=== PATIENT | female | born 1955 | race African-American/Black ===

== ENCOUNTER 2016-09-29 20:38 | Emergency (ER) | payer OTHER ==
[~2016-09-29] VITALS: Ht 157.5 cm; Wt 76.7 kg
[~2016-09-29 20:38] MED LIST: ALBU8.5H6 IH; AZIT250T PO; CODE30SO2 PO; LEVO100T PO; METO25TA2 PO; TRIA1CAP3 PO
[2016-09-29 21:32] LABS: BASO # 0.1 x10^3/uL (0.0-0.2); BASO % 1 % (0-3); EOS # 0.3 x10^3/uL (0.0-0.7); EOS % 6 % (0-3); HEMATOCRIT 37.4 % (36.0-47.0); HEMOGLOBIN 12.9 g/dL (12.0-15.5); LYMPH % 51 % (24-48); MEAN CORPUSCULAR HEMOGLOBIN 28 pg (25-35); MEAN CORPUSCULAR HGB CONC 35 g/dL (31-37); MEAN CORPUSCULAR VOLUME 82 fL (79-100); MONO # 0.4 x10^3/uL (0.0-1.1); MONO % 7 % (0-9); NEUT # 2.1 x10^3uL (1.8-7.7); NEUT % 36 % (31-73); PLATELET COUNT 198 x10^3/uL (140-400); RED BLOOD COUNT 4.54 x10^6/uL (3.50-5.40); RED CELL DISTRIBUTION WIDTH 15.1 % (11.5-14.5); WHITE BLOOD COUNT 5.9 x10^3/uL (4.0-11.0)
[2016-09-29 21:48] LABS: ALBUMIN 3.8 g/dL (3.4-5.0); ALBUMIN/GLOBULIN RATIO 1.1 (1.0-1.7); CALCIUM 9.2 mg/dL (8.5-10.1); GFR 68.7; POTASSIUM 3.6 mmol/L (3.5-5.1); TOTAL BILIRUBIN 0.3 mg/dL (0.2-1.0); TOTAL PROTEIN 7.4 g/dL (6.4-8.2)
--- NOTE | 2016-09-29 22:22 | PHYS DOC ---
Past History Past Medical History: Asthma, Hypertension, Hyperthyroid Past Surgical History: Other Smoking: Non-smoker Alcohol Use: None Drug Use: None Adult General Chief Complaint Chief Complaint: CHEST PAIN HPI HPI Patient is a 60-year-old female who presents today to the ER complaining of left -sided sharp chest pain that started around 4 PM today. Patient reports that he' s been intermittent and lasts for a couple seconds and is resolved. Patient reports that the discomfort was associated with some shortness of breath. Patient reports that she feels that she has multiple PVCs which she has a history of. Patient has any fevers shakes chills nausea vomiting diarrhea cough cold runny nose. Patient denies any pain radiating to her arms. Patient denies any weakness to her upper or lower 70s. Patient has any change in the discomfort to exertion or rest meals. Patient reports it does hurt sometimes when she takes a deep breath in. Patient reports the pain is sharp in nature and again last for seconds when it comes on in the gets resolved. She has a history of hypertension. Patient does not have a history of coronary artery disease, diabetes, liver longer kidney problems. Patient does have a history of hypothyroid. Patient had her tonsils taken out as well as a in the past. Patient does not smoke drink or do drugs. Patient has no family history of present CAD in the past. Patient is allergic to any medications. Patient reports that she's had a history of PVCs and she currently has an appointment to see her roving teller the for another echocardiogram. Patient reports that she had an exercise stress test in 2014 which was normal. Her roving teller Dr. Singleton from . Patient reports she had an echocardiogram at that time was also normal. Patient is currently pain-free in the ER and has been pain-free throughout her evaluation here. Patient denies any orthopnea PND or dyspnea on exertion. Patient's physical exam was unremarkable. Patient heart exam was regular rate and rhythm with occasional ectopic beats. Patient's lungs are clear without any wheezing rales or rhonchi. Patient has no bipedal edema. Patient has no calf tenderness or Homans sign. Patient has no split S2 or if heave. Patient's ER workup revealed unremarkable EKG. Patient's EKG was normal sinus rhythm at a heart rate of 60 with multiple PVCs. Patient reports that this is normal for her. Patient's CBC CMP and troponin were all within normal limits. Patient had a slightly elevated BNP however her chest x-ray was normal with a normal heart size no infiltrates or effusions and no evidence of CHF. Assessment and plan this is a 60-year-old female who presents here today complaining of left-sided chest discomfort that was sharp in nature and appears to be atypical for cardiac etiology. I discussed with the patient the limitations of and ER evaluation and discussed with her that although I'm unable to rule out or rule in a cardiac source for her discomfort she would be considered to be low risk for coronary artery disease. I discussed with the patient that I would not be able to rule out a cardiac source of her pain and would recommend inpatient evaluation at this time in order to rule out completely. Patient reports that she does not feel that in admission is indicated at this time and would prefer to be discharged home. Utilizing shared decision making I did discuss the patient all the risks and benefits of being admitted versus going home. I did discuss with her the potential of arrhythmia microinfarction of the potential possibility if this was a cardiac source. Patient feels comfortable going home and feels that this is unlikely a cardiac etiology. Patient agrees to follow-up with her roving teller as soon as possible for further workup. Patient reports that she will return to the ER if the pain returns. Patient reports that she will return the ER. He changes her mind regarding addition to the hospital. Review of Systems Review of Systems Constitutional: Denies fever or chills [] Eyes: Denies change in visual acuity, redness, or eye pain [] All other review systems are negative except as documented in the history of present illness portion. Allergies Allergies Allergies Coded Allergies Type Severity Reaction Last Updated Verified No Known Drug Allergies 06/06/16 No Physical Exam Physical Exam Constitutional: Well developed, well nourished, no acute distress, non-toxic appearance. [] HENT: Normocephalic, atraumatic, bilateral external ears normal, oropharynx moist, no oral exudates, nose normal. [] Eyes: PERRLA, EOMI, conjunctiva normal, no discharge. [] Neck: Normal range of motion, no tenderness, supple, no stridor. [] Cardiovascular:Heart rate regular with Lungs & Thorax: Bilateral breath sounds clear to auscultation [] Abdomen: Bowel sounds normal, soft, no tenderness, no masses, no pulsatile masses. [] Skin: Warm, dry, no erythema, no rash. [] Back: No tenderness, no CVA tenderness. [] Extremities: No tenderness, no cyanosis, no clubbing, ROM intact, no edema. [] Neurologic: Alert and oriented X 3, normal motor function, normal sensory function, no focal deficits noted. [] Psychologic: Affect normal, judgement normal, mood normal. [] Current Patient Data Lab Results Test 09/29/16 21:17 White Blood Count 5.9 x10^3/uL Red Blood Count 4.54 x10^6/uL Hemoglobin 12.9 g/dL Hematocrit 37.4 % Mean Corpuscular Volume 82 fL Mean Corpuscular Hemoglobin 28 pg Mean Corpuscular Hemoglobin Concent 35 g/dL Red Cell Distribution Width 15.1 % Platelet Count 198 x10^3/uL Neutrophils (%) (Auto) 36 % Lymphocytes (%) (Auto) 51 % Monocytes (%) (Auto) 7 % Eosinophils (%) (Auto) 6 % Basophils (%) (Auto) 1 % Neutrophils # (Auto) 2.1 x10^3uL Lymphocytes # (Auto) 3.0 x10^3/uL Monocytes # (Auto) 0.4 x10^3/uL Eosinophils # (Auto) 0.3 x10^3/uL Basophils # (Auto) 0.1 x10^3/uL D-Dimer (Alma) 0.23 mg/L Sodium Level 144 mmol/L Potassium Level 3.6 mmol/L Chloride Level 108 mmol/L Carbon Dioxide Level 25 mmol/L Anion Gap 11 Blood Urea Nitrogen 18 mg/dL Creatinine 1.0 mg/dL Estimated GFR (Cockcroft-Gault) 68.7 BUN/Creatinine Ratio 18 Glucose Level 98 mg/dL Calcium Level 9.2 mg/dL Total Bilirubin 0.3 mg/dL Aspartate Amino Transf (AST/SGOT) 23 U/L Alanine Aminotransferase (ALT/SGPT) 31 U/L Alkaline Phosphatase 77 U/L Troponin I Quantitative < 0.017 ng/mL VK-Pgm-W-Type Natriuretic Peptide 371 pg/mL Total Protein 7.4 g/dL Albumin 3.8 g/dL Albumin/Globulin Ratio 1.1 Laboratory Tests Test 09/29/16 21:17 White Blood Count 5.9 x10^3/uL (4.0-11.0) Red Blood Count 4.54 x10^6/uL (3.50-5.40) Hemoglobin 12.9 g/dL (12.0-15.5) Hematocrit 37.4 % (36.0-47.0) Mean Corpuscular Volume 82 fL (79-100) Mean Corpuscular Hemoglobin 28 pg (25-35) Mean Corpuscular Hemoglobin Concent 35 g/dL (31-37) Red Cell Distribution Width 15.1 % (11.5-14.5) H Platelet Count 198 x10^3/uL (140-400) Neutrophils (%) (Auto) 36 % (31-73) Lymphocytes (%) (Auto) 51 % (24-48) H Monocytes (%) (Auto) 7 % (0-9) Eosinophils (%) (Auto) 6 % (0-3) H Basophils (%) (Auto) 1 % (0-3) Neutrophils # (Auto) 2.1 x10^3uL (1.8-7.7) Lymphocytes # (Auto) 3.0 x10^3/uL (1.0-4.8) Monocytes # (Auto) 0.4 x10^3/uL (0.0-1.1) Eosinophils # (Auto) 0.3 x10^3/uL (0.0-0.7) Basophils # (Auto) 0.1 x10^3/uL (0.0-0.2) D-Dimer (Alma) 0.23 mg/L (0.00-0.50) Sodium Level 144 mmol/L (136-145) Potassium Level 3.6 mmol/L (3.5-5.1) Chloride Level 108 mmol/L (98-107) H Carbon Dioxide Level 25 mmol/L (21-32) Anion Gap 11 (6-14) Blood Urea Nitrogen 18 mg/dL (7-20) Creatinine 1.0 mg/dL (0.6-1.0) Estimated GFR (Cockcroft-Gault) 68.7 BUN/Creatinine Ratio 18 (6-20) Glucose Level 98 mg/dL (70-99) Calcium Level 9.2 mg/dL (8.5-10.1) Total Bilirubin 0.3 mg/dL (0.2-1.0) Aspartate Amino Transferase (AST) 23 U/L (15-37) Alanine Aminotransferase (ALT) 31 U/L (14-59) Alkaline Phosphatase 77 U/L (46-116) Troponin I Quantitative < 0.017 ng/mL (0-0.055) LC-Fcp-H-Type Natriuretic Peptide 371 pg/mL (0-124) H Total Protein 7.4 g/dL (6.4-8.2) Albumin 3.8 g/dL (3.4-5.0) Albumin/Globulin Ratio 1.1 (1.0-1.7) EKG EKG [] Radiology/Procedures Radiology/Procedures [] Course & Med Decision Making Course & Med Decision Making Pertinent Labs and Imaging studies reviewed. (See chart for details) [] Dragon Disclaimer Dragon Disclaimer This chart was dictated in whole or in part using Voice Recognition software in a busy, high-work load, and often noisy Emergency Department environment. It may contain unintended and wholly unrecognized errors or omissions. Departure Departure: Impression: Primary Impression: Nonspecific chest pain Disposition: 01 HOME, SELF-CARE Condition: IMPROVED Referrals: SHARRI RIOS MD (PCP) Patient Instructions: Chest Pain (Nonspecific) Additional Instructions: Please follow up with your roving teller as soon as possible. Please call in the morning to make an appointment. Please return to the ER if you change your mind about feeling the need to be admitted to the hospital. Please return to the ER if you have any recurring chest pain, shortness of breath, or any other symptoms that are concerning to you. ALEN ROSS MD September 29, 2016 22:22
[2016-09-29 22:35] VITALS: BP 126/61
--- NOTE | 2016-09-29 23:19 | EKG ---
[address] [address] Test Date: 2016-09-29 Test Time: 20:51:20 Pat Name: KAIT VASQUEZ Department: Room: Gender: F [employer]: : 1955 Requested By: ALEN ROSS Order Number: [id number] Reading MD: Johan Atkins Measurements Intervals [place] Rate: 69 P: 34 [place]: 136 QRS: 15 QRSD: 78 T: 24 QT: 402 QTc: 432 Interpretive Statements SINUS RHYTHM COMPLEX(ES) WITH ABERRANT INTRAVENTRICULAR CONDUCTION VENTRICULAR PREMATURE COMPLEX(ES) Electronically Signed On 10-03-2016 9:33:12 CDT by Johan Atkins
--- NOTE | 2016-09-30 07:19 | RAD ---
Exam performed: One view chest. Indication: chest pain today Date of Service: 09/29/2016 11:01 PM Comparison: 07/23/13. Single AP upright portable view chest findings: Cardiomediastinal silhouette is within limits of normal. No acute infiltrates, effusion or pneumothorax is detected. The bony structures are normal. Impression: No acute cardiopulmonary process is detected.
== END 2016-09-29 22:40 | disposition home or self-care (01) ==
LOC: ER 20:38
DX: R07.89 Other chest pain (principal); R06.02 Shortness of breath; J45.909 Unspecified asthma, uncomplicated; I10 Essential (primary) hypertension; E03.9 Hypothyroidism, unspecified
CPT/HCPCS: 36415; 71010; 80053; 83880; 84484; 85027; 85379; 93005; 99285-25

== ENCOUNTER → 2017-03-02 | Outpatient (CLI) | payer OTHER ==
--- NOTE | 2017-03-03 11:19 | RAD ---
DATE: 03/02/2017 EXAM: DIGITAL SCREEN BILAT W/CAD HISTORY: Screening COMPARISON: 01/08/2016 This study was interpreted with the benefit of Computerized Aided Detection (CAD). FINDINGS: Breast Density: HETERO The breast parenchyma Is heterogeneiously dense, which could reduce sensitivity of mammography. Breast parenchyma level C. The history of breast reduction is noted There has not been a significant change in the appearance of the breasts compared to the previous IMPRESSION: Benign finding BI-RADS CATEGORY: 2 BENIGN FINDING(S) RECOMMENDED FOLLOW-UP: 12M 12 MONTH FOLLOW-UP PQRS compliance statement: Patient information was entered into a reminder system with a target due date 03/02/2018 for the next mammogram. Mammography is a sensitive method for finding small breast cancers, but it does not detect them all and is not a substitute for careful clinical examination. A negative mammogram does not negate a clinically suspicious finding and should not result in delay in biopsying a clinically suspicious abnormality. "Our facility is accredited by the [employer] Mammography Program."
== END | disposition home or self-care (01) ==
LOC: MAMMO 15:19
PROVIDERS: ATTEND Obstetrics & Gynecology
DX: Z12.31 Encounter for screening mammogram for malignant neoplasm of breast (principal)
CPT/HCPCS: G0202; 77067

== ENCOUNTER → 2017-11-17 | Outpatient (CLI) | payer OTHER ==
--- NOTE | 2017-11-17 13:41 | RAD ---
CT HEAD WITHOUT CONTRAST 11/17/2017 9:43 AM Indication: HEADACHE WITH BLURRED VISION TIMES 2 MONTHS Comparison: CT of the head without contrast December 24, 2010 Procedure: Multidetector CT imaging of the head was performed without the administration of contrast. Findings: There is no evidence of acute intracranial hemorrhage. There is no evidence of acute territorial infarction. Please note that CT is limited for evaluation of acute ischemia. No mass effect or midline shift is identified . The ventricles and basilar cisterns have an appropriate appearance. No abnormal extra-axial fluid collections are seen. No acute osseous changes are identified. Impression: No evidence of acute intracranial abnormality Electronically signed by: Rocky Beach MD (11/17/2017 1:38 PM) [id number]
== END | disposition home or self-care (01) ==
LOC: CT 09:32
PROVIDERS: ATTEND Family Medicine
DX: H53.8 Other visual disturbances (principal); G43.009 Migraine without aura, not intractable, without status migrainosus; I10 Essential (primary) hypertension; J45.909 Unspecified asthma, uncomplicated; E03.9 Hypothyroidism, unspecified
CPT/HCPCS: 70450

== ENCOUNTER → 2017-11-28 | Outpatient (CLI) | payer OTHER ==
--- NOTE | 2017-11-28 15:06 | RAD ---
Three-view left foot dated 11/28/2017. No comparison available. Clinical indication: Pain after twisting injury. FINDINGS: 3 views left foot show normal bony alignment. No displaced fracture. No acute osseous or articular abnormality. Small calcaneal spur. IMPRESSION: No acute radiographic abnormality. Electronically signed by: Jason Mosqueda MD (11/28/2017 3:03 PM) [id number]
== END | disposition home or self-care (01) ==
LOC: DXRAD 14:08
PROVIDERS: ATTEND Family Medicine
DX: M77.32 Calcaneal spur, left foot (principal); I10 Essential (primary) hypertension; J45.909 Unspecified asthma, uncomplicated; E03.9 Hypothyroidism, unspecified; G43.009 Migraine without aura, not intractable, without status migrainosus
CPT/HCPCS: 73630

== ENCOUNTER 2018-01-02 22:09 | Inpatient (IN) | payer OTHER ==
[~2018-01-02] VITALS: Ht 157.5 cm; Wt 74.5 kg
[~2018-01-02 22:09] MED LIST changes: -CEFU250T59 PO; -ESZO3TAB28 PO; -FLEC100T PO; -IOHEXOL 240 MG/ML 50ML VIAL. ONE; -IOHEXOL 240 MG/ML 50ML VIAL. PO ONE; -LEVO125T5 PO; -METO50TA29 PO; -METR500T PO; -ONDA4TAB12 PO
[2018-01-02 22:45] VITALS: BP 132/82
[2018-01-02] MEDS ORDERED: METO50TA29 PO (22:59)
[2018-01-02] MEDS ORDERED: FLEC100T PO (22:59)
[2018-01-02] MEDS ORDERED: ESZO3TAB28 PO (22:59)
[2018-01-02] MEDS ORDERED: LEVO125T5 PO (22:59)
[2018-01-02] MEDS ORDERED: ONDANSETRON ODT 4 MG TAB.RAPDIS PO PRN (23:00)
[2018-01-02] MEDS ORDERED: fentaNYL PF 250 MCG/5 ML VIAL IV PRN (23:00)
[2018-01-02] MEDS: IV 1/2 NORMAL SALINE 1,000 ML IV PRN (23:53)
[2018-01-03 06:36] VITALS: BP 119/70
[2018-01-03] MEDS: METOPROLOL SUCC 24HR ER 50 MG TAB.ER.24H. PO SCH (08:34)
[2018-01-03] MEDS: LEVOTHYROXINE 125 MCG TABLET PO SCH (08:34)
[2018-01-03] MEDS: FLECAINIDE 50 MG TABLET. PO SCH ×2 (08:35→21:19)
[2018-01-03] MEDS: ALBUTEROL SULFATE 8GM INHALER. IH SCH ×3 (08:36→21:00)
[2018-01-03 09:44] LABS: CALCIUM 8.6 mg/dL (8.5-10.1); GFR 68.2; POTASSIUM 3.5 mmol/L (3.5-5.1)
[2018-01-03 09:49] LABS: BASO % 0 % (0-3); EOS # 0.1 x10^3/uL (0.0-0.7); EOS % 3 % (0-3); HEMATOCRIT 40.8 % (36.0-47.0); HEMOGLOBIN 13.7 g/dL (12.0-15.5); LYMPH # 1.7 x10^3/uL (1.0-4.8); LYMPH % 34 % (24-48); MEAN CORPUSCULAR HEMOGLOBIN 29 pg (25-35); MEAN CORPUSCULAR HGB CONC 34 g/dL (31-37); MEAN CORPUSCULAR VOLUME 86 fL (79-100); MONO # 0.3 x10^3/uL (0.0-1.1); MONO % 5 % (0-9); NEUT # 2.9 x10^3uL (1.8-7.7); NEUT % 58 % (31-73); PLATELET COUNT 248 x10^3/uL (140-400); RED BLOOD COUNT 4.75 x10^6/uL (3.50-5.40); RED CELL DISTRIBUTION WIDTH 15.5 % (11.5-14.5); WHITE BLOOD COUNT 5.1 x10^3/uL (4.0-11.0)
[2018-01-03 11:22] VITALS: BP 116/72
[2018-01-03] MEDS: IV 1/2 NORMAL SALINE 1,000 ML IV PRN ×2 (13:00→21:38)
[2018-01-03 14:44] VITALS: BP 126/76
[2018-01-03 19:00] VITALS: BP 107/68
[2018-01-03] MEDS ORDERED: ZOLPIDEM 5 MG TABLET. PO SCH (21:00)
[2018-01-03 22:09] VITALS: BP 123/74
[2018-01-04 05:54] VITALS: BP 117/71
[2018-01-04] MEDS: LEVOTHYROXINE 125 MCG TABLET PO SCH (06:07)
[2018-01-04 08:31] VITALS: BP 117/71
[2018-01-04] MEDS: FLECAINIDE 50 MG TABLET. PO SCH (08:31)
[2018-01-04] MEDS: METOPROLOL SUCC 24HR ER 50 MG TAB.ER.24H. PO SCH (08:31)
[2018-01-04] MEDS: ALBUTEROL SULFATE 2.5 MG/3 ML NEBU. NEB SCH ×2 (09:00→09:48)
[2018-01-04] MEDS ORDERED: CEFU250T59 PO (10:00)
[2018-01-04] MEDS ORDERED: ONDA4TAB12 PO (10:00)
[2018-01-04] MEDS ORDERED: METR500T PO (10:01)
--- NOTE | 2018-01-11 13:30 | DS ---
DATE OF DISCHARGE: 01/04/2018 HOSPITAL COURSE: A 62-year-old female came in and she has been suffering for about a week and tried to hang in, continuing her abdominal pain at home. She came in, she was noted to have on imaging an infectious colitis. She has done that the day before admission. The patient noted a long segment of the distal ileum and terminal ileum that was thickened and some aneurysm consistent with inflammatory bowel disease. The patient was checked for infectious etiologies and there was none noted. Otherwise, the patient made good progress during the rest of her hospitalization. She did have IV antibiotic therapy, which seemed to help her colitis and she made significant progress to be able to be discharged home. Follow up as an outpatient and make further evaluation as an outpatient with her GI doctor. IMPRESSION: Colitis of the terminal ileum, abdominal pain. The patient will be discharged home. See EMRAD. Decreased activity. Low fiber diet for 2 weeks and then high fiber. We will have her follow up with the GI specialist. SHARRI RIOS MD DR: KARSTEN/donny JOB#: [id number] / [id number]
== END 2018-01-04 14:30 | disposition home or self-care (01) | DRG 392 ==
LOC: 1 SOUTH 22:44
PROVIDERS: ADMIT Family Medicine; ATTEND Family Medicine
DX: A09 Infectious gastroenteritis and colitis, unspecified (principal); E03.9 Hypothyroidism, unspecified; M47.9 Spondylosis, unspecified; I10 Essential (primary) hypertension; Z82.3 Family history of stroke; Z82.49 Family history of ischemic heart disease and other diseases of the circulatory system; Z79.899 Other long term (current) drug therapy; Z88.8 Allergy status to other drugs, medicaments and biological substances
CPT/HCPCS: 36415; 80048; 85025; 87045; J1956; J3010; J3490; J7030

== ENCOUNTER → 2018-01-02 | Outpatient (CLI) | payer OTHER ==
[~2018-01-02] MED LIST changes: +CEFU250T59 PO; +ESZO3TAB28 PO; +FLEC100T PO; +IOHEXOL 240 MG/ML 50ML VIAL. ONE; +IOHEXOL 240 MG/ML 50ML VIAL. PO ONE; +LEVO125T5 PO; +METO50TA29 PO; +METR500T PO; +ONDA4TAB12 PO
[2018-01-02 17:41] LABS: BASO % 1 % (0-3); EOS # 0.1 x10^3/uL (0.0-0.7); EOS % 2 % (0-3); HEMATOCRIT 44.1 % (36.0-47.0); HEMOGLOBIN 14.9 g/dL (12.0-15.5); LYMPH % 33 % (24-48); MEAN CORPUSCULAR HEMOGLOBIN 29 pg (25-35); MEAN CORPUSCULAR HGB CONC 34 g/dL (31-37); MEAN CORPUSCULAR VOLUME 85 fL (79-100); MONO # 0.4 x10^3/uL (0.0-1.1); MONO % 6 % (0-9); NEUT # 3.5 x10^3uL (1.8-7.7); NEUT % 58 % (31-73); PLATELET COUNT 283 x10^3/uL (140-400); RED BLOOD COUNT 5.18 x10^6/uL (3.50-5.40); RED CELL DISTRIBUTION WIDTH 15.4 % (11.5-14.5)
[2018-01-02 17:59] LABS: ALBUMIN 4.6 g/dL (3.4-5.0); CALCIUM 9.9 mg/dL (8.5-10.1); CREATININE 0.9 mg/dL (0.6-1.0); TOTAL BILIRUBIN 0.6 mg/dL (0.2-1.0)
--- NOTE | 2018-01-02 20:45 | RAD ---
Abdominal and Pelvis CT, Without Contrast: History: One week of epigastric pain. Comparison: April 14, 2015. Procedure: Axial images are obtained of the abdomen and pelvis, with oral contrast only. CT Abdomen without Contrast: Findings: Evaluation of solid organs is limited without contrast. Liver: Normal. Spleen: Normal. Pancreas: Normal. Adrenal Glands: Normal. Kidneys: There is a tiny punctate nonobstructive stone in the right renal pelvis. There is no free air or free fluid. There is no lymphadenopathy. Impression: Please see CT Pelvis without Contrast. End Impression. CT Pelvis without Contrast: Findings: The urinary bladder appears normal. There is a trace of free fluid. There is no lymphadenopathy. The appendix is not well seen however there is a small tubular structure posterior to the cecum which could be a normal collapsed appendix. There is a long segment of the distal ileum and terminal ileum which is somewhat aneurysmal and has mild wall thickening and minimal surrounding inflammation. Impression: 1. Long segment of the distal ileum and terminal ileum that has mild wall thickening and mild aneurysmal change with minimal surrounding inflammation. This could be inflammatory such as Crohn's disease or could be infectious including Yersinia or Shigella or Salmonella. Occasionally small bowel lymphoma can have this appearance. 2. Trace of free fluid. PQRS Compliance Statement: One or more of the following individualized dose reduction techniques were utilized for this examination: 1. Automated exposure control 2. Adjustment of the mA and/or kV according to patient size 3. Use of iterative reconstruction technique Electronically signed by: Dimas Coto III, MD (01/02/2018 8:37 PM) [facility]
== END | disposition home or self-care (01) ==
LOC: CT 17:00
PROVIDERS: ATTEND Family Medicine
DX: R10.13 Epigastric pain (principal); I10 Essential (primary) hypertension; G43.009 Migraine without aura, not intractable, without status migrainosus; E03.9 Hypothyroidism, unspecified; J45.909 Unspecified asthma, uncomplicated
CPT/HCPCS: 36415; 74176; 80053; 82150; 83690; 85025; Q9966

== ENCOUNTER → 2018-02-26 | Outpatient (CLI) | payer OTHER ==
[~2018-02-26] MED LIST changes: +CEFU250T59 PO; +ESZO3TAB28 PO; +FLEC100T PO; +LEVO125T5 PO; +METO50TA29 PO; +METR500T PO; +ONDA4TAB12 PO
--- NOTE | 2018-02-26 09:38 | RAD ---
Examination: Ultrasound abdomen complete HISTORY: History of abdominal pain COMPARISON: None available FINDINGS: The visualized IVC, aorta within normal limits of dimension. The visualized pancreas grossly appears unremarkable. The spleen measures 8.6 cm in length. The right kidney measures 9.5 cm in length. The left kidney measures 10 cm. The echogenicity liver grossly appears unremarkable. The liver measures 11.6 cm. No evidence of gallstones. The common bile duct measures 2.8 mm in diameter. IMPRESSION: Unremarkable visualized exam. Electronically signed by: Naun De Dios MD (02/26/2018 9:35 AM) [place] [id number]
--- NOTE | 2018-02-26 12:30 | RAD ---
Radionuclide hepatobiliary scan, 02/26/2018: HISTORY: Abdominal pain Following IV injection of 5.2 mCi of technetium 99m Choletec there was prompt uptake of the radionuclide from the blood stream by the liver. Activity is present in the gallbladder and bile ducts at 15 minutes. Small bowel activity developed at 25 minutes. Additional imaging was then performed following oral ingestion of 8 ounces of the Boost oral supplement. This was utilized for the ejection fraction portion of the study in the absence of available cholecystokinin. The gallbladder ejection fraction was calculated at 84 percent. IMPRESSION: 1. Normal radionuclide hepatobiliary scan. 2. The gallbladder ejection fraction is 84 percent. Electronically signed by: Eddi Grewal MD (02/26/2018 12:27 PM) [facility]
== END | disposition home or self-care (01) ==
LOC: US 07:43
PROVIDERS: ATTEND Internal Medicine Gastroenterology
DX: R10.84 Generalized abdominal pain (principal); I10 Essential (primary) hypertension
CPT/HCPCS: 76700; 78226; 96374; 96375; A9537

== ENCOUNTER 2018-04-28 12:37 | Inpatient (IN) | payer OTHER ==
[~2018-04-28] VITALS: Ht 157.5 cm; Wt 74.2 kg
[2018-04-28 16:26] VITALS: BP 134/75
[2018-04-28] MEDS ORDERED: ESZO2TAB21 PO (17:03)
[2018-04-28] MEDS ORDERED: LIFI1DRO EACHEYE (17:03)
[2018-04-28 18:31] VITALS: BP 133/81
[2018-04-28] MEDS ORDERED: ALBUTEROL SULFATE 8GM INHALER. IH PRN (20:30)
[2018-04-28] MEDS ORDERED: ZOLPIDEM 5 MG TABLET. PO PRN (20:45)
[2018-04-28] MEDS ORDERED: ALPRAZolam 0.25 MG TABLET PO PRN (20:45)
[2018-04-28] MEDS ORDERED: ALBUTEROL SULFATE 2.5 MG/3 ML NEBU. NEB PRN (20:45)
[2018-04-28 20:57] LABS: ALBUMIN 3.9 g/dL (3.4-5.0); ALBUMIN/GLOBULIN RATIO 1.1 (1.0-1.7); CALCIUM 9.2 mg/dL (8.5-10.1); CREATININE 1.1 mg/dL (0.6-1.0); GFR 61.1; POTASSIUM 3.8 mmol/L (3.5-5.1); TOTAL BILIRUBIN 0.3 mg/dL (0.2-1.0); TOTAL PROTEIN 7.6 g/dL (6.4-8.2)
[2018-04-28] MEDS ORDERED: ESZOPICLONE 2 MG PO SCH (21:00)
[2018-04-28 21:07] LABS: BASO # 0.1 x10^3/uL (0.0-0.2); BASO % 1 % (0-3); EOS # 0.2 x10^3/uL (0.0-0.7); EOS % 3 % (0-3); HEMATOCRIT 38.2 % (36.0-47.0); HEMOGLOBIN 12.8 g/dL (12.0-15.5); LYMPH # 2.9 x10^3/uL (1.0-4.8); LYMPH % 48 % (24-48); MEAN CORPUSCULAR HEMOGLOBIN 29 pg (25-35); MEAN CORPUSCULAR HGB CONC 33 g/dL (31-37); MEAN CORPUSCULAR VOLUME 87 fL (79-100); MONO # 0.3 x10^3/uL (0.0-1.1); MONO % 5 % (0-9); NEUT # 2.6 x10^3uL (1.8-7.7); NEUT % 43 % (31-73); PLATELET COUNT 234 x10^3/uL (140-400); RED BLOOD COUNT 4.41 x10^6/uL (3.50-5.40); RED CELL DISTRIBUTION WIDTH 14.8 % (11.5-14.5); WHITE BLOOD COUNT 6.1 x10^3/uL (4.0-11.0)
[2018-04-28 21:32] VITALS: BP 136/75
[2018-04-28] MEDS: FLECAINIDE 50 MG TABLET. PO SCH (21:32)
[2018-04-28 22:41] VITALS: BP 124/80
[2018-04-28 22:43] VITALS: BP 129/81
[2018-04-28 22:44] VITALS: BP 124/80
[2018-04-29 05:54] VITALS: BP 130/79
[2018-04-29] MEDS ORDERED: LEVOTHYROXINE 125 MCG TABLET PO SCH (06:00)
--- NOTE | 2018-04-29 08:13 | RAD ---
PA and lateral chest x-ray HISTORY: Syncope, dry cough. COMPARISON: Chest x-ray September 29, 2016. FINDINGS: Heart size normal. Mediastinal silhouette is normal. No pneumothorax, pulmonary opacities or pleural effusions. Mild thoracolumbar scoliosis and sequela of thoracic spine degenerative disc disease. IMPRESSION: No acute process. Electronically signed by: Bay Weston MD (04/29/2018 8:10 AM) [facility]
[2018-04-29] MEDS: FLECAINIDE 50 MG TABLET. PO SCH (08:38)
[2018-04-29] MEDS ORDERED: METOPROLOL SUCC 24HR ER 50 MG TAB.ER.24H. PO SCH (09:00)
[2018-04-29] MEDS ORDERED: NON FORMULARY ITEM (Lifitegrast (Xiidra) 1 EACH) EACHEYE SCH (09:00)
[2018-04-29] MEDS ORDERED: TRIAMTERENE/HCTZ 37.5/25MG TABLET. PO SCH (09:00)
[2018-04-29 11:11] VITALS: BP 107/68
[2018-04-29] MEDS ORDERED: ZOLP5TAB PO (11:57)
--- NOTE | 2018-04-29 12:49 | DS ---
DATE OF DISCHARGE: HOSPITAL COURSE: A 62-year-old female came in with chest discomfort as well as palpitations and fluttering. She had a complete syncopal spell where she passed out completely and hit the floor and is out for several minutes before she was aroused. The patient was brought in to the hospital for further evaluation and treatment. The patient's cardiac enzymes were basically negative. She made good progress during the rest of her hospitalization. Her TSH was 11. However, the rest of her labs look really fairly good without any complications there. The patient's chest x-ray was unremarkable. In any case, the patient made good progress during the rest of her hospitalization. The patient will be discharged home. She will follow up with her reports analyst. IMPRESSION: Syncope, chest discomfort, hypothyroidism. The patient will be followed up with her reports analyst, . ____. SHARRI RIOS MD DR: KARSTEN/donny JOB#: [id number] / [id number]
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
--- NOTE | 2018-04-30 06:42 | EKG ---
[address] [address] Test Date: 2018-04-29 Test Time: 06:11:49 Pat Name: KAIT VASQUEZ Department: Room: 113 A Gender: F Fixed Income Manager: KETAN : 1955 Requested By: SHARRI RIOS Order Number: [id number] Reading MD: Measurements Intervals [place] Rate: 53 P: 49 [place]: 136 QRS: 20 QRSD: 78 T: 21 QT: 460 QTc: 434 Interpretive Statements SINUS RHYTHM QRS(T) CONTOUR ABNORMALITY CONSIDER ANTEROSEPTAL MYOCARDIAL DAMAGE POSSIBLY ABNORMAL ECG RI6.01 Compared to ECG 09/29/2016 20:51:20 No significant changes
== END 2018-04-29 12:28 | disposition home or self-care (01) | DRG 312 ==
LOC: 1 SOUTH 16:01
PROVIDERS: ADMIT Family Medicine; ATTEND Family Medicine
PROC: 5A09357 Assistance with Respiratory Ventilation, Less than 24 Consecutive Hours, Continuous Positive Airway Pressure (ICD-10-PCS; principal; 2018-04-29)
DX: R55 Syncope and collapse (principal); E03.9 Hypothyroidism, unspecified; R07.89 Other chest pain; I10 Essential (primary) hypertension; I49.3 Ventricular premature depolarization
CPT/HCPCS: 36415; 71046; 80053; 83735; 84443; 84484; 85025; 85379; 93005

== ENCOUNTER → 2018-10-26 | Outpatient (CLI) | payer OTHER ==
[~2018-10-26] MED LIST changes: +ESZO2TAB21 PO; +LIFI1DRO EACHEYE; +ZOLP5TAB PO
--- NOTE | 2018-10-26 18:03 | RAD ---
DATE: 10/26/2018. EXAM: MAMMO PREETHI FUNMILAYO GABRIELAT, BREAST LEFT. HISTORY: Left lower outer breast pain. COMPARISON: 03/02/1970. This study was interpreted with the benefit of Computerized Aided Detection (CAD). FINDINGS: Breast Density: SCATTERED The breast parenchyma shows scattered fibroglandular densities. Breast parenchyma level B.. There are no suspicious masses, microcalcifications or architectural distortion. Scattered calcifications are benign. There is no correlate for left breast tenderness. On today's sonography, or normal parenchyma seen. There is no correlate for a palpable or tender focus. BI-RADS CATEGORY: 2 BENIGN FINDING(S). RECOMMENDED FOLLOW-UP: 12M 12 MONTH FOLLOW-UP. 1. Ongoing clinical follow-up of left breast tenderness. 2. Bilateral mammography in one year. PQRS compliance statement: Patient information was entered into a reminder system with a target due date 10/27/2019 for the next mammogram. Mammography is a sensitive method for finding small breast cancers, but it does not detect them all and is not a substitute for careful clinical examination. A negative mammogram does not negate a clinically suspicious finding and should not result in delay in biopsying a clinically suspicious abnormality. "Our facility is accredited by the [employer] Mammography Program."
== END | disposition home or self-care (01) ==
LOC: MAMMO 14:09
PROVIDERS: ATTEND Obstetrics & Gynecology
DX: R92.1 Mammographic calcification found on diagnostic imaging of breast (principal)
CPT/HCPCS: 76641; 77066; G0279; 77062

== ENCOUNTER → 2020-02-06 | Outpatient (CLI) | payer OTHER ==
--- NOTE | 2020-02-07 18:31 | RAD ---
DATE: 02/06/2020 3:35 PM EXAM: MAMMO PREETHI SCREENING BILATERAL HISTORY: Screening COMPARISON: 10/26/2018 Bilateral CC and MLO views of the breasts were performed. Bilateral breast tomosynthesis was performed in CC and MLO projections. This study was interpreted with the benefit of Computerized Aided Detection (CAD). FINDINGS: Breast Density: SCATTERED The breast parenchyma shows scattered fibroglandular densities. Breast parenchyma level B No suspicious masses, microcalcifications or architectural distortion is present to suggest malignancy in either breast. The visualized axillae are unremarkable. IMPRESSION: No mammographic evidence of malignancy. BI-RADS CATEGORY: 1 NEGATIVE RECOMMENDED FOLLOW-UP: 12M 12 MONTH FOLLOW-UP Annual screening mammography is recommended, unless clinically indicated sooner based on symptoms or change in physical exam. PQRS compliance statement: Patient information was entered into a reminder system with a target due date for the next mammogram. Mammography is a sensitive method for finding small breast cancers, but it does not detect them all and is not a substitute for careful clinical examination. A negative mammogram does not negate a clinically suspicious finding and should not result in delay in biopsying a clinically suspicious abnormality. "Our facility is accredited by the [employer] Mammography Program."
== END | disposition home or self-care (01) ==
LOC: MAMMO 15:26
PROVIDERS: ATTEND Obstetrics & Gynecology
DX: Z12.31 Encounter for screening mammogram for malignant neoplasm of breast (principal)
CPT/HCPCS: 77063; 77067

== ENCOUNTER 2021-10-18 08:50 | Observation (INO) | payer OTHER ==
[~2021-10-18] VITALS: Ht 157.5 cm; Wt 76.0 kg
[2021-10-18 09:39] LABS: BASO % 1 % (0-3); EOS # 0.3 x10^3/uL (0.0-0.7); EOS % 6 % (0-3); HEMATOCRIT 39.5 % (36.0-47.0); HEMOGLOBIN 13.2 g/dL (12.0-15.5); LYMPH # 2.1 x10^3/uL (1.0-4.8); LYMPH % 48 % (24-48); MEAN CORPUSCULAR HEMOGLOBIN 29 pg (25-35); MEAN CORPUSCULAR HGB CONC 33 g/dL (31-37); MEAN CORPUSCULAR VOLUME 86 fL (79-100); MONO # 0.4 x10^3/uL (0.0-1.1); MONO % 8 % (0-9); NEUT # 1.6 x10^3uL (1.8-7.7); NEUT % 37 % (31-73); PLATELET COUNT 228 x10^3/uL (140-400); RED BLOOD COUNT 4.59 x10^6/uL (3.50-5.40); RED CELL DISTRIBUTION WIDTH 15.1 % (11.5-14.5); WHITE BLOOD COUNT 4.3 x10^3/uL (4.0-11.0)
[2021-10-18 09:47] LABS: CALCIUM 9.2 mg/dL (8.5-10.1); CREATININE 0.9 mg/dL (0.6-1.0); GFR 76.3; POTASSIUM 3.6 mmol/L (3.5-5.1)
--- NOTE | 2021-10-18 09:47 | PHYS DOC ---
Past History Past Medical History: Hypertension, Hypothyroid, Other Additional Past Medical Histor: PVC'S Past Surgical History: , Tonsillectomy, Other Additional Past Surgical Histo: LEFT HIP SCOPE Smoking: Non-smoker Alcohol Use: None Drug Use: None Adult General Chief Complaint Chief Complaint: CHEST PAIN HPI HPI Patient is a 65 year old female who presents with complaint of chest pain. The patient states that her pain originates along the left side of her chest and radiates towards her left arm. Pain started this morning at 0630. Patient also notes that she has been having frequent PVCs. Has had previous history of PVCs and underwent an ablation about 2 years ago but states that her PVCs started returning within the last year. The patient states that her pain remains constant and does seem to worsen when she is up and moving. Patient states that she underwent cardiac stress testing a year ago with no positive findings for ischemia. Denies fever, cough, shortness of breath, vomiting, diaphoresis, or diarrhea. Currently follows with Dr. Massey of cardiology and Dr. Rios for primary care. Review of Systems Review of Systems Constitutional: Denies fever or chills [] Eyes: Denies change in visual acuity, redness, or eye pain [] HENT: Denies nasal congestion or sore throat [] Respiratory: Denies cough or shortness of breath [] Cardiovascular: Chest pain, denies edema [] GI: Denies abdominal pain, nausea, vomiting, bloody stools or diarrhea [] : Denies dysuria or hematuria [] Musculoskeletal: Denies back pain or joint pain [] Integument: Denies rash or skin lesions [] Neurologic: Denies headache, focal weakness or sensory changes [] All other systems were reviewed and found to be within normal limits, except as documented in this note. Allergies Allergies Allergies Coded Allergies Type Severity Reaction Last Updated Verified No Known Drug Allergies 10/18/21 No Physical Exam Physical Exam Constitutional: Well developed, well nourished, no acute distress, non-toxic appearance. [] HENT: Normocephalic, atraumatic, bilateral external ears normal, oropharynx moist, no oral exudates, nose normal. [] Eyes: PERRLA, EOMI, conjunctiva normal, no discharge. [] Neck: Normal range of motion, no tenderness, supple, no stridor. [] Cardiovascular:Heart rate regular rhythm, no murmur [] Lungs & Thorax: Bilateral breath sounds clear to auscultation [] Abdomen: Bowel sounds normal, soft, no tenderness, no masses, no pulsatile masses. [] Skin: Warm, dry, no erythema, no rash. [] Back: No tenderness, no CVA tenderness. [] Extremities: No tenderness, no cyanosis, no clubbing, ROM intact, no edema. [] Neurologic: Alert and oriented X 3, normal motor function, normal sensory function, no focal deficits noted. [] Current Patient Data Vital Signs Vital Signs Date Time Temp Pulse Resp B/P (MAP) Pulse Ox O2 Delivery O2 Flow Rate FiO2 10/18/21 08:59 98.5 67 18 172/68 (102) 98 Room Air Lab Results Laboratory Tests Test 10/18/21 09:20 10/18/21 09:30 White Blood Count 4.3 x10^3/uL Red Blood Count 4.59 x10^6/uL Hemoglobin 13.2 g/dL Hematocrit 39.5 % Mean Corpuscular Volume 86 fL Mean Corpuscular Hemoglobin 29 pg Mean Corpuscular Hemoglobin Concent 33 g/dL Red Cell Distribution Width 15.1 % Platelet Count 228 x10^3/uL Neutrophils (%) (Auto) 37 % Lymphocytes (%) (Auto) 48 % Monocytes (%) (Auto) 8 % Eosinophils (%) (Auto) 6 % Basophils (%) (Auto) 1 % Neutrophils # (Auto) 1.6 x10^3uL Lymphocytes # (Auto) 2.1 x10^3/uL Monocytes # (Auto) 0.4 x10^3/uL Eosinophils # (Auto) 0.3 x10^3/uL Basophils # (Auto) 0.0 x10^3/uL Sodium Level 139 mmol/L Potassium Level 3.6 mmol/L Chloride Level 104 mmol/L Carbon Dioxide Level 25 mmol/L Anion Gap 10 Blood Urea Nitrogen 15 mg/dL Creatinine 0.9 mg/dL Estimated GFR (Cockcroft-Gault) 76.3 BUN/Creatinine Ratio 17 Glucose Level 103 mg/dL Calcium Level 9.2 mg/dL Magnesium Level 1.9 mg/dL Total Bilirubin 0.6 mg/dL Aspartate Amino Transf (AST/SGOT) 17 U/L Alanine Aminotransferase (ALT/SGPT) 25 U/L Alkaline Phosphatase 69 U/L Troponin I High Sensitivity 6 ng/L NA-Vbw-J-Type Natriuretic Peptide 90 pg/mL Total Protein 7.1 g/dL Albumin 3.7 g/dL Albumin/Globulin Ratio 1.1 Urine Collection Type Unknown Urine Color Yellow Urine Clarity Clear Urine pH 7.0 Urine Specific [place] 1.020 Urine Protein Neg Urine Glucose (UA) Neg mg/dL Urine Ketones (Stick) Neg mg/dL Urine Blood Neg Urine Nitrite Neg Urine Bilirubin Neg Urine Urobilinogen Dipstick 0.2 mg/dL Urine Leukocyte Esterase Neg Urine RBC Occ /HPF Urine WBC Occ /HPF Urine Squamous Epithelial Cells Few /LPF Urine Bacteria 0 /HPF Current Medications Medications (Trade) Dose Ordered Sig/Brittany Route PRN Reason Start Time Stop Time Status Last Admin Dose Admin Ondansetron HCl (Zofran) 4 mg PRN Q4HRS PRN IVP NAUSEA/VOMITING 10/18/21 10:30 10/19/21 10:29 Sodium Chloride 1,000 ml @ 125 mls/hr Q8H IV 10/18/21 10:30 10/19/21 10:29 Acetaminophen (Tylenol) 650 mg PRN Q4HRS PRN PO FEVER > 100.3'F 10/18/21 10:30 10/19/21 10:29 EKG EKG Interpreted by me: Heart rate 63, sinus rhythm, multiple PVCs, no acute ST/T wave abnormalities present [] Radiology/Procedures Radiology/[place] [address] IMAGING REPORT Signed PATIENT: KAIT VASQUEZ ACCOUNT: [id number] : 1955 LOCATION: ER AGE: 65 SEX: F EXAM STATUS: REG ER ORD. PHYSICIAN: DIANA DELEON MD REASON: Chest pain PROCEDURE: PORTABLE CHEST 1V XR CHEST 1V 10/18/2021 9:49 AM INDICATION: Chest pain COMPARISON: 04/28/2018 TECHNIQUE: Portable frontal view of the chest is provided. FINDINGS: The cardiomediastinal silhouette is within normal limits. Lungs are clear. There are no significant pleural effusions. There is no pulmonary vascular congestion. No pneumothorax. No suspicious osseous abnormality. IMPRESSION: There is no acute cardiopulmonary process. Electronically signed by: Andrea Saldaña MD (10/18/2021 10:14 AM) [id number] DICTATED AND SIGNED BY: ANDREA SALDAÑA MD DATE: 10/18/21 1013 CC: SHARRI RIOS MD; DIANA DELEON MD ~ [] Heart Score C/O Chest Pain: Yes HEART Score for Chest Pain: HEART Score for Chest Pain Response (Comments) Value History Moderately Suspicious 1 ECG Nonspecific Repolarizatio 1 Age >45 - < 65 1 Risk Factors >3 Risk Factors or Hx CAD 2 Total 5 Risk Factors: Risk Factors: DM, Current or recent (<one month) smoker, HTN, HLP, family history of CAD, obesity. Risk Scores: Risk Factors: DM, Current or recent (<one month) smoker, HTN, HLP, family history of CAD, obesity. Course & Med Decision Making Course & Med Decision Making Pertinent Labs and Imaging studies reviewed. (See chart for details) Blood work was reviewed and appears stable at this time. Patient's heart score is 5 placing her in moderate risk category for acute coronary syndrome. Patient thus will be admitted to the hospital for continued noninvasive testing to rule out myocardial infarction. I spoke with patient's primary care physician, Dr. Rios, who will accept care of patient in hospital for further care. A routine consult was placed to cardiology services to follow with patient in hospital. [] Dragon Disclaimer Dragon Disclaimer This electronic medical record was generated, in whole or in part, using a voice recognition dictation system. Departure Departure: Impression: Primary Impression: Chest pain Additional Impression: PVCs (premature ventricular contractions) Disposition: ADMITTED INPATIENT Condition: STABLE Referrals: SHARRI RIOS MD (PCP) Problem Qualifiers Primary Impression: Chest pain Chest pain type: unspecified Qualified Codes: R07.9 - Chest pain, unspeci fied DIANA DELEON MD October 18, 2021 09:47
[2021-10-18 10:01] LABS: ALBUMIN 3.7 g/dL (3.4-5.0); ALBUMIN/GLOBULIN RATIO 1.1 (1.0-1.7); MAGNESIUM 1.9 mg/dL (1.8-2.4); TOTAL BILIRUBIN 0.6 mg/dL (0.2-1.0); TOTAL PROTEIN 7.1 g/dL (6.4-8.2)
[2021-10-18 10:09] LABS: CLARITY,URINE CLEAR; COLOR,URINE YELLOW; GLUCOSE,URINE NEG (NEG)
[2021-10-18 10:10] LABS: BACTERIA,URINE 0 /HPF (0-FEW); NITRITE,URINE NEG (NEG); RBC,URINE OCC /HPF (0-2); SQUAMOUS EPITHELIAL CELL,UR FEW /LPF; UROBILINOGEN,URINE 0.2 mg/dL (0.2 mg/dL); WBC,URINE OCC /HPF (0-4)
--- NOTE | 2021-10-18 10:16 | RAD ---
XR CHEST 1V 10/18/2021 9:49 AM INDICATION: Chest pain COMPARISON: 04/28/2018 TECHNIQUE: Portable frontal view of the chest is provided. FINDINGS: The cardiomediastinal silhouette is within normal limits. Lungs are clear. There are no significant pleural effusions. There is no pulmonary vascular congestion. No pneumothora x. No suspicious osseous abnormality. IMPRESSION: There is no acute cardiopulmonary process. Electronically signed by: Netta Chun MD (10/18/2021 10:14 AM) [id number]
[2021-10-18] MEDS ORDERED: ACETAMINOPHEN 325 MG TABLET PO PRN (10:30)
[2021-10-18] MEDS ORDERED: ONDANSETRON PF 4 MG/2 ML VIAL. IVP PRN (10:30)
[2021-10-18 12:29] VITALS: BP 170/81
[2021-10-18] MEDS ORDERED: METO-239 PO (12:39)
[2021-10-18] MEDS ORDERED: LEVO125T PO (12:51)
[2021-10-18 13:15] VITALS: BP 127/70
[2021-10-18] MEDS: IV NORMAL SALINE 1,000ML 1,000 ML IV SCH ×2 (13:22→23:10)
--- NOTE | 2021-10-18 14:54 | HP ---
DATE OF SERVICE: 10/18/2021 ADMIT DATE: 10/18/2021 HISTORY OF PRESENT ILLNESS: A 65-year-old female who came in with chest pressure. The patient has a long history of ventricular arrhythmias and has been worked up, had a stress test about a year ago, has multiple PVCs come and go. However, the one today lasted over 24 minutes and began to have some chest pressure. She says these are more severe than usual. As a result of that, came in through the Emergency Room because of the severity of her PVCs and the fact that the patient is 65 years old and family history of heart disease. The patient was admitted for further evaluation and observation, rule out AR protocol. PAST MEDICAL HISTORY: The patient has had history of cardiac ablation, premature ventricular contractions, hypertension, sleep apnea, , orthopedic surgery, joint replacement, left hip scope, hypothyroidism, pneumococcal vaccinations. FAMILY HISTORY: Heart disease in the mother and paternal grandmother, cancer in an aunt. ALLERGIES: The patient has no known drug allergies. SOCIAL HISTORY: The patient denies smoking, alcohol or drug us. Is a medical claims manager. MEDICATIONS: The patient's home medications are metoprolol XL 25 mg daily, triamterene/hydrochlorothiazide daily, levothyroxine 125 mcg daily. REVIEW OF SYSTEMS: The patient denies any headaches, visual change, blurred vision, double vision. Does have some shortness of breath. Denies any nausea, vomiting, diaphoresis. He does have chest tightness. Denies any abdominal pain. Denies any melena, hematochezia, hematemesis. Neurologically, the patient basically is stable. No problem with bowels or bladder. No seizure-like activity. PHYSICAL EXAMINATION: GENERAL: This is a pleasant white female, in moderate amount of discomfort. VITAL SIGNS: Blood pressure 183/96, respiratory rate 18, pulse in the 80s, afebrile and 98 on room air. HEENT: Head atraumatic, normocephalic. Eyes: PERRLA without jaundice. The mouth and throat were normal. NECK: Supple without JVD or thyromegaly. LUNGS: Diminished, but clear throughout. CARDIOVASCULAR: Regular with occasional dropped beat. ABDOMEN: The patient's abdomen is soft, nontender. No rebounding or guarding. Positive bowel sounds. No hepatosplenomegaly was noted. EXTREMITIES: No clubbing, cyanosis, nor edema. NEUROLOGIC: The patient was alert and oriented x 3. Speech fluent, spontaneous, and appropriate. Cranial nerves 2-12 are grossly intact. DIAGNOSTIC DATA: Chest x-ray was unremarkable. LABORATORY DATA: The patient's labs were basically unremarkable as well. SARS was negative. CBC: WBC 4.3, hemoglobin 13 and hematocrit 39. Chemistry: Sodium 139, potassium 3.6, BUN and creatinine 15 and 0.9, blood sugar 103, magnesium 1.9, albumin 3.7. Urine negative. SARS negative. ASSESSMENT AND PLAN: The patient will be admitted for rule out AR protocol. So far, they have been negative. We will have Cardiology see her and make further evaluation, observation and evaluation on her as indicated. EDY DR: Therese TID: [id number]
[2021-10-18 15:56] VITALS: BP 154/83
[2021-10-18 19:00] VITALS: BP 127/73
[2021-10-18 23:00] VITALS: BP 149/83
[2021-10-19] MEDS: IV NORMAL SALINE 1,000ML 1,000 ML IV SCH (02:30)
[2021-10-19 05:00] VITALS: BP 157/83
[2021-10-19] MEDS ORDERED: LEVOTHYROXINE 125 MCG TABLET PO SCH (06:00)
[2021-10-19 06:08] LABS: BASO % 1 % (0-3); EOS # 0.3 x10^3/uL (0.0-0.7); EOS % 7 % (0-3); HEMATOCRIT 36.5 % (36.0-47.0); HEMOGLOBIN 12.4 g/dL (12.0-15.5); LYMPH # 1.8 x10^3/uL (1.0-4.8); LYMPH % 49 % (24-48); MEAN CORPUSCULAR HEMOGLOBIN 29 pg (25-35); MEAN CORPUSCULAR HGB CONC 34 g/dL (31-37); MEAN CORPUSCULAR VOLUME 86 fL (79-100); MONO # 0.3 x10^3/uL (0.0-1.1); MONO % 8 % (0-9); NEUT # 1.3 x10^3uL (1.8-7.7); NEUT % 36 % (31-73); PLATELET COUNT 219 x10^3/uL (140-400); RED BLOOD COUNT 4.26 x10^6/uL (3.50-5.40); RED CELL DISTRIBUTION WIDTH 14.8 % (11.5-14.5); WHITE BLOOD COUNT 3.7 x10^3/uL (4.0-11.0)
[2021-10-19 06:20] LABS: CALCIUM 8.5 mg/dL (8.5-10.1); CREATININE 0.8 mg/dL (0.6-1.0); GFR 87.4; POTASSIUM 3.7 mmol/L (3.5-5.1)
--- NOTE | 2021-10-19 08:01 | PDOC2 ---
CARDIAC CONSULT DATE OF CONSULT DOS: DATE: 10/19/21 TIME: 07:57 REASON FOR CONSULT Reason for Consult Chest pain REFERRING PHYSICIAN Referring Physician Dr. Miner SOURCE Source: Chart review, Patient HPI History of Present Illness This is a 65 yo female who presented secondary to chest pain. 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 She underwent PVC ablation in December [address] Chandler. Flecainide was dis continued at that time. Reports reoccurrence of PVC's intermittent since last April. Episode are generally brief and resolve. Yesterday, she began having palpitations and they persisted. Has dull pain in her left chest. Seemed to be worse with activity, exertion. No associated shortness of breath, dizziness, diaphoresis, or nausea/vomiting. Reports compliance with medications. Recent 2-day Holter showed PVC burden of 11%. Also had recent stress test that did not show any evidence of ischemia. [facility] 09/2019 without significant CAD. PAST MEDICAL HISTORY Cardiovascular: HTN, Other (Frequent PVC's ) Pulmonary: Asthma, Other (MARY) Psych: Anxiety Endocrine: Hypothyroidism PAST SURGICAL HISTORY Past Surgical History: Other (cardiac ablation ) FAMILY HISTORY Family History: Heart Disease SOCIAL HISTORY Smoke: No ALCOHOL: none Drugs: None Lives: with Family CURRENT MEDICATIONS Current Medications Current Medications Ondansetron HCl (Zofran) 4 mg PRN Q4HRS PRN IVP NAUSEA/VOMITING; Start 10/18/21 at 10:30; Stop 10/19/21 at 10:29 Sodium Chloride 1,000 ml @ 125 mls/hr Q8H IV Last administered on 10/18/21at 23:10; Start 10/18/21 at 10:30; Stop 10/19/21 at 10:29 Acetaminophen (Tylenol) 650 mg PRN Q4HRS PRN PO FEVER > 100.3'F; Start 10/18/21 at 10:30; Stop 10/19/21 at 10:29 Levothyroxine Sodium (Synthroid) 125 mcg DAILY06 PO Last administered on 10/19/21at 06:00; Start 10/19/21 at 06:00 Metoprolol Succinate (Toprol Xl) 25 mg DAILY PO ; Start 10/19/21 at 09:00 Triamterene/HCTZ (Maxzide 37.5/ 25mg) 1 tab DAILY PO ; Start 10/19/21 at 09:00 Active Scripts Active Reported Synthroid (Levothyroxine Sodium) 125 Mcg Tablet 1 Tab PO DAILY Metoprolol Succinate ( Xl ) (Metoprolol Succinate) 25 Mg Tab.er.24h 1 Tab PO DAILY Triamterene-Hctz 37.5-25 Mg Cp (Triamterene/Hydrochlorothiazid) 1 Each Capsule 1 Each PO DAILY NOT GIVEN IN THE HOSPITAL NEXT DOSE DUE: DATE: RESTART TOMORROW TIME: AM ALLERGIES Allergies: Coded Allergies: No Known Drug Allergies (Unverified , 10/18/21) ROS Review of Systems 14 point ROS conducted with pertinent positives noted above in HPI PHYSICAL EXAM General: Alert, Oriented X3, Cooperative, No acute distress HEENT: Atraumatic Lungs: Clear to auscultation Heart: Regular rate (SR with frequent PVCs) Abdomen: Soft, No tenderness Extremities: No edema, Normal pulses Skin: No breakdown Neuro: Normal speech, Sensation intact Psych/Mental Status: Mental status NL, Mood NL MUSCULOSKELETAL: Osteoarthritic changes both hands VITALS Vital Signs Vital Signs Date Time Temp Pulse Resp B/P (MAP) Pulse Ox O2 Delivery O2 Flow Rate FiO2 10/19/21 05:00 98.2 65 16 157/83 (107) 97 Room Air LABS LABS Laboratory Tests Test 10/18/21 09:20 10/18/21 09:30 10/18/21 10:30 10/18/21 12:20 White Blood Count 4.3 x10^3/uL (4.0-11.0) Red Blood Count 4.59 x10^6/uL (3.50-5.40) Hemoglobin 13.2 g/dL (12.0-15.5) Hematocrit 39.5 % (36.0-47.0) Mean Corpuscular Volume 86 fL (79-100) Mean Corpuscular Hemoglobin 29 pg (25-35) Mean Corpuscular Hemoglobin Concent 33 g/dL (31-37) Red Cell Distribution Width 15.1 % (11.5-14.5) Platelet Count 228 x10^3/uL (140-400) Neutrophils (%) (Auto) 37 % (31-73) Lymphocytes (%) (Auto) 48 % (24-48) Monocytes (%) (Auto) 8 % (0-9) Eosinophils (%) (Auto) 6 % (0-3) Basophils (%) (Auto) 1 % (0-3) Neutrophils # (Auto) 1.6 x10^3uL (1.8-7.7) Lymphocytes # (Auto) 2.1 x10^3/uL (1.0-4.8) Monocytes # (Auto) 0.4 x10^3/uL (0.0-1.1) Eosinophils # (Auto) 0.3 x10^3/uL (0.0-0.7) Basophils # (Auto) 0.0 x10^3/uL (0.0-0.2) Sodium Level 139 mmol/L (136-145) Potassium Level 3.6 mmol/L (3.5-5.1) Chloride Level 104 mmol/L (98-107) Carbon Dioxide Level 25 mmol/L (21-32) Anion Gap 10 (6-14) Blood Urea Nitrogen 15 mg/dL (7-20) Creatinine 0.9 mg/dL (0.6-1.0) Estimated GFR (Cockcroft-Gault) 76.3 BUN/Creatinine Ratio 17 (6-20) Glucose Level 103 mg/dL (70-99) Calcium Level 9.2 mg/dL (8.5-10.1) Magnesium Level 1.9 mg/dL (1.8-2.4) Total Bilirubin 0.6 mg/dL (0.2-1.0) Aspartate Amino Transf (AST/SGOT) 17 U/L (15-37) Alanine Aminotransferase (ALT/SGPT) 25 U/L (14-59) Alkaline Phosphatase 69 U/L (46-116) Troponin I High Sensitivity 6 ng/L (4-50) 6 ng/L (4-50) AC-Slb-K-Type Natriuretic Peptide 90 pg/mL (0-124) Total Protein 7.1 g/dL (6.4-8.2) Albumin 3.7 g/dL (3.4-5.0) Albumin/Globulin Ratio 1.1 (1.0-1.7) Urine Collection Type Unknown Urine Color Yellow Urine Clarity Clear Urine pH 7.0 Urine Specific [place] 1.020 Urine Protein Neg (NEG-TRACE) Urine Glucose (UA) Neg mg/dL (NEG) Urine Ketones (Stick) Neg mg/dL (NEG) Urine Blood Neg (NEG) Urine Nitrite Neg (NEG) Urine Bilirubin Neg (NEG) Urine Urobilinogen Dipstick 0.2 mg/dL (0.2 mg/dL) Urine Leukocyte Esterase Neg (NEG) Urine RBC Occ /HPF (0-2) Urine WBC Occ /HPF (0-4) Urine Squamous Epithelial Cells Few /LPF Urine Bacteria 0 /HPF (0-FEW) SARS-CoV-2 Antigen (Rapid) Negative (NEGATIVE) Test 10/18/21 15:25 10/19/21 05:37 D-Dimer ([place]) 0.30 mg/L (0.00-0.50) Troponin I High Sensitivity 7 ng/L (4-50) White Blood Count 3.7 x10^3/uL (4.0-11.0) Red Blood Count 4.26 x10^6/uL (3.50-5.40) Hemoglobin 12.4 g/dL (12.0-15.5) Hematocrit 36.5 % (36.0-47.0) Mean Corpuscular Volume 86 fL (79-100) Mean Corpuscular Hemoglobin 29 pg (25-35) Mean Corpuscular Hemoglobin Concent 34 g/dL (31-37) Red Cell Distribution Width 14.8 % (11.5-14.5) Platelet Count 219 x10^3/uL (140-400) Neutrophils (%) (Auto) 36 % (31-73) Lymphocytes (%) (Auto) 49 % (24-48) Monocytes (%) (Auto) 8 % (0-9) Eosinophils (%) (Auto) 7 % (0-3) Basophils (%) (Auto) 1 % (0-3) Neutrophils # (Auto) 1.3 x10^3uL (1.8-7.7) Lymphocytes # (Auto) 1.8 x10^3/uL (1.0-4.8) Monocytes # (Auto) 0.3 x10^3/uL (0.0-1.1) Eosinophils # (Auto) 0.3 x10^3/uL (0.0-0.7) Basophils # (Auto) 0.0 x10^3/uL (0.0-0.2) Sodium Level 140 mmol/L (136-145) Potassium Level 3.7 mmol/L (3.5-5.1) Chloride Level 108 mmol/L (98-107) Carbon Dioxide Level 25 mmol/L (21-32) Anion Gap 7 (6-14) Blood Urea Nitrogen 11 mg/dL (7-20) Creatinine 0.8 mg/dL (0.6-1.0) Estimated GFR (Cockcroft-Gault) 87.4 Glucose Level 108 mg/dL (70-99) Calcium Level 8.5 mg/dL (8.5-10.1) EKG EKG Holter Monitor Hookup date: 05/31/2021. Scan date: 06/08/2021. 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 Scanned by: [employer] Patient monitored for 2d 3h starting on 05/31/2021 09:02 am. Primary rhythm was Sinus Rhythm. Average heart rate was 79 bpm, Minimum heart rate was 61 bpm on Day :55:37 pm, Max heart rate was 121 bpm on Day :40:25 pm Atrial Fibrillation or Flutter: [place] was 0 %, longest event 0 ms on --, fastest rate -- bpm on --. PSVC(s): [place] was < 0.01 %, max count per 24 hours 6 SVT (AT, RT): 0 events, longest event 0 s on --, fastest event -- bpm on -- Pause: 0 events, longest pause 0 ms on -- AV Block: 0 %, most severe block demonstrated -- PVC(s): [place] was 11.07 %, max count per 24 hours 22788, 5 disparate morphologies Ventricular Tachycardia: 1 events, longest event 4 beats at Day :40:54 pm, fastest rate 100 bpm at Day :40:54 pm Patient recorded 9 events during the monitoring period ECHOCARDIOGRAM Echocardiogram 07/19/19 - 2-D + DOPPLER ECHOCARDIOGRAM Interpretation Summary Normal chamber sizes Normal left ventricular systolic function with EF = 65% Normal cardiac valve structure Mild mitral and tricuspid valve regurgitation Normal pulmonary artery pressure with estimated systolic PAP = 28mm Hg STRESS TEST Stress Test 06/15/21 - Procedure: D-SPECT MULTI GATED THALLIUM REGADENOSON MPI STRESS TEST SUMMARY/OPINION: This study is normal with no evidence of significant myocardial ischemia. Left ventricular systolic function is normal. There are no high risk prognostic indicators present. The pharmacologic ECG portion of the study is negative for ischemia. Frequent monomorphic PVCs, at times in a bigeminal pattern. Comparison is made with prior exercise DSPECT MPI dated 07/27/2018. This study was normal with no evidence of significant myocardial ischemia. LVEF 72%, LVEDV 49 mL. Comparing both studies qualitatively there been no significant interval changes. This study was read in conjunction with cardiovascular fellow, Dr. Los Abdi. In aggregate the current study is low risk in regards to predicted annual cardiovascular mortality rate. HEART CATH Heart Cath FINDINGS 1. Hemodynamics: Left ventricular end-diastolic pressure of 16 mmHg. No pullback gradient across the aortic valve. 2. Left ventriculography: Normal left ventricle systolic function with ejection fraction estimated at 65%. No significant mitral regurgitation seen. 3. Coronary angiography: a. The left main coronary artery arose from the left sinus of Valsalva, gave rise to the left anterior descending and left circumflex arteries and did not show any significant stenosis. b. The left anterior descending artery did not show any significant stenosis. c. The left circumflex artery did not show any significant stenosis. d. The right coronary artery was a large and dominant vessel arising from the right sinus of Valsalva that showed 20 to 30% stenosis in the midsegment. Conclusion 1. No significant coronary disease 2. Normal left ventricular systolic function with ejection fraction estimated at 65%. DATE: 10/11/19 1317 ASSESSMENT/PLAN Assessment/Plan 1. Chest pain, atypical. AMI ruled out. Recent MPI without evidence of ischemia as noted above. [facility] 09/2019 without significant CAD as noted above. Suspect symptoms are related to frequent PVC's, which she has experienced in the past 2. Arrhythmia; frequent PVC's. s/p PVC ablation 12/2019. Was take off flecainide following. On metoprolol for rate control. Recetn 2-day Holter showed 11% PVC burden as noted above Follow with [facility] EPD[facility]. Chandler 3. Hypertension; controlled 4. MARY with CPAP 5. Hypothyroidism Recommendations Check TSH Continue BB therapy Consider resumption of antiarrhythmic therapy with flecainide and outpatient event monitor. 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
[2021-10-19] MEDS ORDERED: TRIAMTERENE/HCTZ 37.5/25MG TABLET. PO SCH (09:00)
[2021-10-19] MEDS ORDERED: METOPROLOL SUCC 24HR ER 25 MG TAB.ER.24H. PO SCH (09:00)
[2021-10-19] MEDS ORDERED: METOPROLOL SUCC 24HR ER 25 MG TAB.ER.24H. PO ONE (10:45)
[2021-10-19 11:00] VITALS: BP 156/78
[2021-10-19] MEDS ORDERED: METO50TA29 PO (13:33)
[2021-10-19 19:25] LABS: CHOLESTEROL/HDL RATIO 2.1
[2021-10-20] MEDS ORDERED: METOPROLOL SUCC 24HR ER 50 MG TAB.ER.24H. PO SCH (09:00)
== END 2021-10-19 15:15 | disposition home or self-care (01) ==
LOC: ER 08:50 → ER HOLD 10:31 → INTOOBSV 10:31 → 1 SOUTH 10:42
PROVIDERS: ADMIT Family Medicine; ATTEND Family Medicine
DX: R07.89 Other chest pain (principal); Z20.822 Contact with and (suspected) exposure to COVID-19; I49.3 Ventricular premature depolarization; I10 Essential (primary) hypertension; G47.33 Obstructive sleep apnea (adult) (pediatric); E03.9 Hypothyroidism, unspecified; J45.909 Unspecified asthma, uncomplicated; Z96.642 Presence of left artificial hip joint; Z90.49 Acquired absence of other specified parts of digestive tract; Z79.899 Other long term (current) drug therapy; Z98.891 History of uterine scar from previous surgery
CPT/HCPCS: 36415; 71045; 80048; 80053; 80061; 81001; 83735; 83880; 84443; 84484; 85025; 85379; 87426; 93005; 96360; 96361; G0378; G0379; U0003; 99285-25; J7030